=== PATIENT | female | born 1970 | race Caucasian/White ===

== ENCOUNTER 2016-12-19 07:54 | Outpatient (CLI) | payer OTHER | END 2016-12-19 07:55 | disposition short-term general hospital (02) | LOC: EMS 07:54 | PROVIDERS: ATTEND Surgery | DX: S71.131A Puncture wound without foreign body, right thigh, initial encounter (principal); W32.0XXA Accidental handgun discharge, initial encounter; Y92.003 Bedroom of unspecified non-institutional (private) residence as the place of occurrence of the external cause | CPT/HCPCS: A0425; A0427 ==